=== PATIENT | female | born 1975 | race Caucasian/White ===

== ENCOUNTER 2017-07-11 07:05 | Inpatient (IN) | payer BC ==
--- NOTE | 2017-07-10 06:06 | PREOPHP ---
DATE OF ADMISSION: 07/11/2017 The patient is coming on , 07/11/2017, for a surgical procedure. HISTORY OF PRESENT ILLNESS: This is a 41-year-old female 3, para 3, with history of a lost IUD string since 2008. This patient has been bleeding heavily off and on with clots, with an ultras ound that shows a single 8 cm fundal fibroid. This patient was to have another child and would like to preserve her fertility for which a myomectomy has been offered instead of a hysterectomy, with t he possibility of complications during the procedure and the need to have the hysterectomy consent i n case of unmanageable intraoperative bleeding. The patient understands that and she is agreeing on this procedure. She is complaining of bleeding every day for months. She has been anemic. She hassan s visited several doctors that try to take her IUD also that has been embedded and lost inside her u terus. The patient was offered a myomectomy and the removal of lost IUD, with the possibility of a hysterectomy in case of inability to control her bleeding. PAST MEDICAL HISTORY: Unremarkable. She is healthy. ALLERGIES: SHE HAS NO ALLERGIES. MEDICATIONS: She is on no medication. FAMILY HISTORY: Noncontributory. REVIEW OF SYSTEMS: Negative for cardiovascular disease, lung disease, GI disease, endocrine disease , neurological or orthopedic disease. SOCIAL HISTORY: No history of drugs or alcohol. FAMILY HISTORY: Unremarkable. She is on no medication. PHYSICAL EXAMINATION: VITAL SIGNS: The blood pressure is 130/80, pulse is 80, temperature 98.6. She weighs 162. She is 5 feet 6 inches. HEAD AND NECK: Normal. BREASTS: Soft, nontender, no masses. CHEST: Clear. HEART: Normal sinus rhythm. LUNGS: Clear. ABDOMEN: With a uterus that is palpable about a 14-week size of a about the symphysis. GENITALIA: Negative. PELVIC: Cervix is healthy. Uterus with bleeding, retroverted flex about 14 weeks size. Adnexa are negative. EXTREMITIES: Normal. DIAGNOSES: With intractable menometrorrhagia, intractable pelvic pain, large uterine fibroid, lost IUD, anemia, the patient has been advised for a myomectomy and removal of IUD, and possible DAIANA. Dariel dorman has been advised of the possible risks and possible complications of the procedure with her altern atives and options. Written information was provided. She had no more questions and agreed to go a head with the procedure with full understanding and no more questions. Dictated By: THU MCGOVERN/NTS Conf#: [id number] DID#: [id number]
[2017-07-11] VITALS (14 sets, daily range): BP systolic 119–134; BP diastolic 63–69; PULSE 70–84; RESP 12–20; Ht 170.2 cm; Wt 71.0 kg
[~2017-07-11] VITALS: Ht 170.2 cm; Wt 71.0 kg
[2017-07-11] MEDS ORDERED: CEFAZOLIN 2 GM/50 ML (PMX) 50 ML IVPB ONE (08:00)
[2017-07-11] MEDS ORDERED: PROPOFOL 20 ML ONE (09:27)
[2017-07-11] MEDS ORDERED: ROCURONIUM 50 MG INJ ONE (09:27)
[2017-07-11] MEDS ORDERED: LIDOCAINE 2% (SDV) 5 ML INJ ONE (09:27)
[2017-07-11] MEDS ORDERED: SUCCINYLCHOLINE CHLORIDE 100 MG/5 ML SYG IV ONE (09:27)
[2017-07-11] MEDS ORDERED: GLYCOPYRROLATE 0.4 MG INJ ONE ×2 (09:27→11:28)
[2017-07-11] MEDS ORDERED: NEOSTIGMINE 3 MG/3 ML SYRINGE ONE ×2 (09:27→11:28)
[2017-07-11] MEDS ORDERED: MEPERIDINE 100 MG INJ ONE (09:28)
--- NOTE | 2017-07-11 09:36 | HPN ---
Date/Time of Note Date/Time of Note DATE: 07/11/17 TIME: 09:36 Interval H&P Admission Note Pt. seen H&P reviewed: No system changes THU ARNOLD MD Jul 11, 2017 09:36
[2017-07-11] MEDS ORDERED: CEFAZOLIN 1 GM INJ ONE (10:11)
[2017-07-11] MEDS ORDERED: ONDANSETRON 4 MG INJ ONE (10:12)
[2017-07-11] MEDS ORDERED: METOCLOPRAMIDE 10 MG INJ ONE (10:12)
[2017-07-11] MEDS ORDERED: VASOPRESSIN 20 UNITS INJ ONE (10:31)
[2017-07-11] MEDS ORDERED: METOCLOPRAMIDE 10 MG INJ IV PRN (11:00)
[2017-07-11] MEDS ORDERED: OXYCODONE/ACETAMINOPHEN (5/325) TAB PO PRN ×2 (11:00)
[2017-07-11] MEDS ORDERED: FENTAnyl 50 MCG/ML VIAL IV PRN ×2 (11:00)
[2017-07-11] MEDS ORDERED: MIDAZOLAM 1 MG/ML 2 ML INJ IV PRN (11:00)
[2017-07-11] MEDS ORDERED: LABETALOL HCL 20MG INJ IV PRN (11:00)
[2017-07-11] MEDS ORDERED: HYDROmorphONE (0.2 MG/ML) 10ML SYG IV PRN ×2 (11:00)
[2017-07-11] MEDS ORDERED: ONDANSETRON 4 MG INJ IV PRN ×2 (11:00→21:30)
[2017-07-11] MEDS ORDERED: EPHEDrine SULFATE 50 MG/5 ML SYG IV PRN (11:00)
[2017-07-11] MEDS ORDERED: hydrALAzine 20 MG INJ IV PRN (11:00)
[2017-07-11] MEDS ORDERED: DIPHENHYDRAMINE 50 MG INJ IV PRN (11:00)
[2017-07-11] MEDS ORDERED: MEPERIDINE 25 MG INJ IV PRN (11:00)
--- NOTE | 2017-07-11 11:58 | SIPON ---
Date/Time of Note Date/Time of Note DATE: 07/11/17 TIME: 11:56 Operative Report Preoperative Diagnosis Intractable pelvic pain and menometrorrhagia Anemia Large uterine fibroid 8+ cm Postoperative Diagnosis Same Operation/Procedure Performed Abdominal myomectomy Surgeon see signature line infertility medical assistant Dr. Al Anesthesia: general Estimated blood loss: 10 - 50 ml's Transfusion Required none Specimen Uterine fibroid Grafts/Implants none Complications none THU ARNOLD MD Jul 11, 2017 11:58
[2017-07-11] MEDS ORDERED: ZOLPIDEM 5 MG TAB PO PRN (12:00)
[2017-07-11] MEDS ORDERED: KETOROLAC 30 MG INJ IV PRN (12:00)
[2017-07-11] MEDS ORDERED: BISACODYL (EC) 5 MG TAB PO PRN (12:00)
[2017-07-11] MEDS ORDERED: HYDROmorphONE 1 MG/ML SYG IV PRN (12:00)
[2017-07-11] MEDS ORDERED: DIPHENHYDRAMINE 50 MG CAP PO PRN (12:00)
--- NOTE | 2017-07-11 12:07 | OPR ---
DATE OF OPERATION: 07/11/2017 PROCEDURE: Abdominal myomectomy. PREOPERATIVE DIAGNOSES: 1. Large fibroid uterus. 2. Intractable pelvic pain and menometrorrhagia. POSTOPERATIVE DIAGNOSES: 1. Large fibroid uterus. 2. Intractable pelvic pain and menometrorrhagia SURGEON: Thu Silva MD TRUCK RENTAL CLERK: . ANESTHESIOLOGIST: Dr. Rosas. ANESTHESIA: General anesthesia. DESCRIPTION OF PROCEDURE: The patient was given general anesthesia, placed in the supine position. The abdomen was prepped and draped and a Jones catheter was placed in the bladder. A transverse in cision going 2 cm up the pubic bone was made of about 8 cm in diameter. The abdominal cavity was re ached. The pelvic cavity was reached and a large fundal fibroid was observed. Both tubes and ovari es were normal. The Pitressin 20 units were diluted in 20 mL of normal saline and this was injected underneath the area of the fibroid for vasoconstriction. A midline incision was made from the fund us to the bottom vertically to be able to remove this fibroid. A towel clip was used and the fibroi d was removed with Metzenbaum and with digital dissection. After the fibroid was removed the cavity was observed and the uterus was completely visualized and the endometrial area was observed to be o pen. The fibroid involved the anterior wall of the uterus and fundus reaching all the way to the ar ea of the endometrium. There was no active bleeding. There were some pumpers that were cauterized with single stitches with 0 Monocryl and stitches with 0 Vicryl with good hemostasis. The cavity wa s closed using #0 catgut pop off sutures so the myometrium was closed thoroughly, approximating one side to the other side and the serosa of the uterus was closed with a 2-0 Vicryl continuous suture. Hemostasis was visualized under water, it was very stable and good. A piece of Interceed was place d on the incisional area and on top of the uterus to prevent adhesions. The cavity had been cleaned thoroughly and the procedure was finished after assessing the uterus and making sure there was no o ther fibroid which there was no other fibroid. The peritoneum was closed with a 2-0 Vicryl suture. The fascia was closed with 0 PDS looped suture. The subcutaneous tissue was closed with 2-0 Vicryl and 3-0 Monocryl subcuticular to the skin. Dermabond and Steri-Strips were applied. The patient t olerated the procedure well and left the OR awake and stable. Sponge counts and instrument counts w ere correct. Intravenous antibiotics were given for prophylaxis. Blood loss was approximately 20 m L and the urine was clear at the end of the procedure. Dictated By: THU MCGOVERN/FERMIN Conf#: [id number] DID#: [id number]
[2017-07-11] MEDS: FENTAnyl 50 MCG/ML VIAL IV PRN ×2 (12:20→12:26)
[2017-07-11] MEDS: LACTATED RINGER'S 1,000 ML IV SCH ×3 (12:44→23:37)
[2017-07-11] MEDS: HYDROmorphONE (0.2 MG/ML) 10ML SYG IV PRN ×3 (13:21→13:54)
[2017-07-11] MEDS: CEFAZOLIN 1 GM/50 ML (PMX) 50 ML IVPB SCH ×2 (13:54→22:04)
[2017-07-11] MEDS: METOCLOPRAMIDE 10 MG TAB PO SCH ×2 (18:27→23:37)
--- NOTE | 2017-07-11 18:32 | RADRPT ---
Vent Rate: 77 bpm RR Interval: 0 msec HI Interval: 188 msec QRS Duration: 90 msec QT Interval: 400 msec QTC Interval: 452 msec P-R-T [place]: 60 - 66 - 57 degrees Normal sinus rhythm Normal ECG Electronically Signed By: Mina García [id number]
[2017-07-11] MEDS: HYDROCODONE/APAP (5/325) TAB PO PRN (20:21)
[2017-07-11] MEDS: KETOROLAC 30 MG INJ IV SCH (21:30)
[2017-07-12 02:00] VITALS: BP 94/51; RESP 18
[2017-07-12] MEDS: KETOROLAC 30 MG INJ IV SCH ×4 (03:09→21:30)
[2017-07-12] MEDS: LACTATED RINGER'S 1,000 ML IV SCH ×2 (03:59→08:58)
[2017-07-12] MEDS: METOCLOPRAMIDE 10 MG TAB PO SCH ×4 (05:45→23:35)
[2017-07-12] MEDS: CEFAZOLIN 1 GM/50 ML (PMX) 50 ML IVPB SCH (05:46)
[2017-07-12 06:05] LABS: BASOPHILS % 0.2 % (0.0-2.0); EOSINOPHILS % 0.1 % (0.0-7.0); HEMOGLOBIN 10.5 g/dl (12.0-16.0); LYMPHOCYTES # 1.1 10^3/ul (0.8-2.9); LYMPHOCYTES % 7.7 % (15.0-51.0); MEAN CORPUSCULAR HEMOGLOBIN 29.2 pg (29.0-33.0); MEAN CORPUSCULAR HGB CONC 32.8 g/dl (32.0-37.0); MEAN CORPUSCULAR VOLUME 88.9 fl (82.0-101.0); MEAN PLATELET VOLUME 12.8 fl (7.4-10.4); MONOCYTE # 1.1 10^3/ul (0.3-0.9); MONOCYTES % 7.7 % (0.0-11.0); PLATELET COUNT 217 10^3/UL (140-415); RED CELL DISTRIBUTION WIDTH 11.8 % (11.5-14.5); WHITE BLOOD COUNT 14.3 10^3/ul (4.8-10.8)
[2017-07-12 06:44] LABS: CREATININE 0.63 mg/dl (0.44-1.00); POTASSIUM 3.9 mmol/L (3.5-5.1)
[2017-07-12 07:46] VITALS: BP 97/50; RESP 16
--- NOTE | 2017-07-12 12:46 | PN ---
Date/Time of Note Date/Time of Note DATE: 07/12/17 TIME: 12:45 Assessment/Plan Lines/Catheters IV Catheter Type (from [facility]): Peripheral IV Jones in Place (from [facility]): Yes Subjective 24 Hr Interval Summary day 1 postop afebrile. feels good. surgery explained to patient. Constitutional: BM, ambulates, flatus, improved, no complaints, urine output Feeding: advancing diet Detailed Summary Eyes: no complaints ENT: no complaints Respiratory: no complaints Cardiovascular: no complaints Gastrointestinal: no complaints Genitourinary: no complaints Musculoskeletal: no complaints Skin: no complaints Neurologic: no complaints Endocrine: no complaints Lymphatic: no complaints Psychological: nl mood/affect, no complaints Immunologic: no complaints Exam/Review of Systems Vital Signs Vitals Vital Signs Date Time Temp Pulse Resp B/P Pulse Ox O2 Delivery O2 Flow Rate FiO2 07/12/17 07:46 98.0 87 16 97/50 98 07/11/17 12:51 Room Air Intake and Output 07/11/17 07/11/17 07/12/17 15:00 23:00 07:00 Intake Total 50 ml 1300 ml Balance 50 ml 1300 ml Exam Constitutional: alert, oriented, well developed Psych: nl mood/affect, no complaints Head: atraumatic, normocephalic Eyes: EOMI, nl conjunctiva, nl lids, nl sclera ENMT: mucosa pink and moist, nl external ears & nose, nl lips & teeth, nl nasal mucosa & septum Neck: non-tender, supple Respiratory: clear to auscultation, normal air movement Cardiovascular: nl pulses, regular rate and rhythm Gastrointestinal: nl liver, spleen, non-tender, soft Musculoskeletal: nl extremities to inspection, nl gait and stance Extremities: normal pulses Neurological: FAMILY SERVICES SPECIALIST II-XII intact, nl mental status, nl speech, nl strength Skin: nl turgor, rash or lesions Lymph: nl lymph nodes Results Result Diagram: 07/12/17 0455 07/12/17 0455 THU ARNOLD MD Jul 12, 2017 12:46
[2017-07-12] MEDS ORDERED: BISACODYL (EC) 5 MG TAB PO ONE (13:00)
[2017-07-12 14:03] VITALS: BP 106/59; RESP 16
[2017-07-12] MEDS: HYDROCODONE/APAP (5/325) TAB PO PRN ×2 (14:38→23:04)
[2017-07-12 19:42] VITALS: BP 132/64; RESP 20
[2017-07-13 02:00] VITALS: BP 130/69; RESP 18
[2017-07-13] MEDS: KETOROLAC 30 MG INJ IV SCH ×4 (02:38→21:02)
[2017-07-13] MEDS: METOCLOPRAMIDE 10 MG TAB PO SCH ×3 (05:33→18:42)
[2017-07-13] MEDS: HYDROCODONE/APAP (5/325) TAB PO PRN ×2 (05:34→23:10)
[2017-07-13 08:03] VITALS: BP 116/57; RESP 16
--- NOTE | 2017-07-13 12:03 | PN ---
Date/Time of Note Date/Time of Note DATE: 07/13/17 TIME: 11:54 Assessment/Plan Lines/Catheters IV Catheter Type (from Nrs): Peripheral IV Jones in Place (from Nrs): Yes Subjective 24 Hr Interval Summary July 12, 2017 Post abdominal myomectomy day 2 Hospital visit This is a post op visit of this 41 years old lady who had myomectomy 2 days ago (This is a 41-year-old female 3, para 3, with history of a lost IUD string since 2008. This patient has been bleeding heavily off and on with clots , with an ultrasound that shows a single 8 cm fundal fibroid.) Today she is afebrile chest is clear No calf tenderness Abdomen is soft Bowel sounds are present No CVA tenderness Her hemoglobin is 10.5 hematocrit 32 and WBC is 14.3 Her abdominal incision is clean Additional Comments Laboratory Tests Test 07/12/17 04:55 07/12/17 05:31 White Blood Count 14.310^3/ul Red Blood Count 3.6010^6/ul Hemoglobin 10.5g/dl Hematocrit 32.0% Mean Corpuscular Volume 88.9fl Mean Corpuscular Hemoglobin 29.2pg Mean Corpuscular Hemoglobin Concent 32.8g/dl Red Cell Distribution Width 11.8% Platelet Count 13312^3/UL Mean Platelet Volume 12.8fl Neutrophils % 84.0% Lymphocytes % 7.7% Monocytes % 7.7% Eosinophils % 0.1% Basophils % 0.2% Nucleated Red Blood Cells % 0.0/100WBC Neutrophils # 12.010^3/ul Lymphocytes # 1.110^3/ul Monocytes # 1.110^3/ul Eosinophils # 0.010^3/ul Basophils # 0.010^3/ul Nucleated Red Blood Cells # 0.010^3/ul Sodium Level 138mmol/L Potassium Level 3.9mmol/L Chloride Level 105mmol/L Carbon Dioxide Level 28mmol/L Anion Gap 9 Blood Urea Nitrogen 6mg/dl Creatinine 0.63mg/dl Lab Scanned Report [id number] Current Medications Medications (Trade) Dose Ordered Sig/Tristen Route PRN Reason Start Time Stop Time Status Last Admin Dose Admin Cefazolin Sodium/ Dextrose (Ancef 2 Gm/50 ml (Pmx)) 50 ml @ 100 mls/hr PRE-OP ONCE IVPB 07/11/17 08:00 07/11/17 08:29 DC Lidocaine (Xylocaine 2% (Sdv)) 100 mg STK-MED ONCE .ROUTE 07/11/17 09:27 07/11/17 09:28 DC Rocuronium [place] 50 mg 50 mg STK-MED ONCE .ROUTE 07/11/17 09:27 07/11/17 09:28 DC Propofol (Diprivan) 20 ml @ ud STK-MED ONCE .ROUTE 07/11/17 09:27 07/11/17 09:28 DC Glycopyrrolate (Robinul) 0.4 mg STK-MED ONCE .ROUTE 07/11/17 09:27 07/11/17 09:28 DC Succinylcholine Chloride (Anectine Syringe) 100 mg STK-MED ONCE IV 07/11/17 09:27 07/11/17 09:28 DC Neostigmine Methylsulfate (Neostigmine) 3 mg STK-MED ONCE .ROUTE 07/11/17 09:27 07/11/17 09:28 DC Meperidine HCl (Demerol) 100 mg STK-MED ONCE .ROUTE 07/11/17 09:28 07/11/17 09:29 DC Cefazolin Sodium (Ancef) 1 gm STK-MED ONCE .ROUTE 07/11/17 10:11 07/11/17 10:12 DC Ondansetron HCl (Zofran Inj) 4 mg STK-MED ONCE .ROUTE 07/11/17 10:12 07/11/17 10:13 DC Metoclopramide HCl (Reglan) 10 mg STK-MED ONCE .ROUTE 07/11/17 10:12 07/11/17 10:13 DC Hydromorphone HCl (Dilaudid (Rec)) 0.2 mg PACU ORDER PRN IV MILD PAIN LEVEL 1-3 07/11/17 11:00 07/11/17 16:00 DC Hydromorphone HCl (Dilaudid (Rec)) 0.4 mg PACU ORDER PRN IV MODERATE PAIN LEVEL 4-6 07/11/17 11:00 07/11/17 16:00 DC 07/11/17 13:54 Hydromorphone HCl (Dilaudid (Rec)) 0.6 mg PACU ORDER PRN IV SEVERE PAIN LEVEL 7-10 07/11/17 11:00 07/11/17 16:00 DC Fentanyl (Sublimaze) 25 mcg PACU ORDER PRN IV MILD PAIN LEVEL 1-3 07/11/17 11:00 07/11/17 16:00 DC 07/11/17 12:26 Fentanyl (Sublimaze) 50 mcg PACU ODER PRN IV MODERATE PAIN LEVEL 4-6 07/11/17 11:00 07/11/17 16:00 DC 07/11/17 12:45 Fentanyl (Sublimaze) 75 mcg PACU ORDER PRN IV SEVERE PAIN LEVEL 7-10 07/11/17 11:00 07/11/17 16:00 DC Oxycodone/ Acetaminophen (Percocet (5/ 325)) 1 tab PACU ORDER PRN PO PAIN LEVEL 1-5 07/11/17 11:00 07/11/17 16:00 DC Oxycodone/ Acetaminophen (Percocet (5/ 325)) 2 tab PACU ORDER PRN PO PAIN LEVEL 6-10 07/11/17 11:00 07/11/17 16:00 DC Ondansetron HCl (Zofran Inj) 4 mg PACU ORDER PRN IV NAUSEA AND/OR VOMITING 07/11/17 11:00 07/11/17 16:00 DC 07/11/17 12:21 Metoclopramide HCl (Reglan) 10 mg PACU ORDER PRN IV NAUSEA AND/OR VOMITING 07/11/17 11:00 07/11/17 16:00 DC 07/11/17 12:25 Labetalol HCl (Labetalol) 5 mg PACU ORDER PRN IV HIGH BLOOD PRESSURE 07/11/17 11:00 07/11/17 16:00 DC Hydralazine HCl (Apresoline) 5 mg PACU ORDER PRN IV HIGH BLOOD PRESSURE 07/11/17 11:00 07/11/17 16:00 DC Ephedrine Sulfate 5 mg PACU ORDER PRN IV MAP LESS THAN 60 07/11/17 11:00 07/11/17 16:00 DC Meperidine HCl (Demerol) 25 mg PACU ORDER PRN IV POST-OP RIGORS 07/11/17 11:00 07/11/17 16:00 DC 07/11/17 12:20 Diphenhydramine HCl (Benadryl) 25 mg PACU ORDER PRN IV PRURITUS 07/11/17 11:00 07/11/17 16:00 DC 07/11/17 13:29 Midazolam HCl (Versed) 0.5 mg PACU ORDER PRN IV ANXIETY 07/11/17 11:00 07/11/17 16:00 DC Vasopressin (Pitressin) 20 unit STK-MED ONCE .ROUTE 07/11/17 10:31 07/11/17 10:32 DC 07/11/17 10:41 Neostigmine Methylsulfate (Neostigmine) 3 mg STK-MED ONCE .ROUTE 07/11/17 11:28 07/11/17 11:29 DC Glycopyrrolate 0.4 mg 0.4 mg STK-MED ONCE .ROUTE 07/11/17 11:28 07/11/17 11:29 DC Lactated Ringer's 1,000 ml @ 125 mls/hr Q8H IV 07/11/17 11:59 07/12/17 12:42 DC 07/12/17 08:58 Cefazolin Sodium (Ancef 1 Gm/50 ml (Pmx)) 50 ml @ 100 mls/hr Q8 IVPB 07/11/17 14:00 07/12/17 12:42 DC 07/12/17 05:46 Zolpidem Tartrate (Ambien) 10 mg HS PRN PO INSOMNIA 07/11/17 12:00 Metoclopramide HCl (Reglan) 10 mg Q6 PO 07/11/17 18:00 07/13/17 05:33 Simethicone (Mylicon) 160 mg Q6 PO 07/11/17 18:00 07/13/17 05:33 Bisacodyl (Dulcolax) 10 mg DAILY PRN PO CONSTIPATION 07/11/17 12:00 Hydromorphone HCl (Dilaudid) 1 mg Q4H PRN IV PAIN 07/11/17 12:00 Acetaminophen/ Hydrocodone Bitart ([place] (5/325)) 1 tab Q6H PRN PO PAIN LEVEL 4-6 07/11/17 12:00 07/12/17 14:38 Acetaminophen/ Hydrocodone Bitart ([place] (5/325)) 2 tab Q6H PRN PO PAIN LEVEL 7-10 07/11/17 12:00 07/13/17 05:34 Ketorolac Tromethamine (Toradol) 30 mg Q6H PRN IV PAIN 07/11/17 12:00 07/11/17 21:12 DC Diphenhydramine HCl (Benadryl) 50 mg Q6H PRN PO ITCHING 07/11/17 12:00 Ondansetron HCl (Zofran Inj) 4 mg Q4H PRN IV NAUSEA AND/OR VOMITING 07/11/17 21:30 Ketorolac Tromethamine (Toradol) 30 mg Q6H IV 07/11/17 21:30 07/14/17 21:29 07/13/17 10:48 Bisacodyl (Dulcolax) 10 mg ONCE ONCE PO 07/12/17 13:00 07/12/17 13:01 DC 07/12/17 13:28 We will advance her diet to regular Exam/Review of Systems Vital Signs Vitals Vital Signs Date Time Temp Pulse Resp B/P Pulse Ox O2 Delivery O2 Flow Rate FiO2 07/13/17 08:03 98.5 85 16 116/57 96 07/11/17 12:51 Room Air Intake and Output 07/12/17 07/12/17 07/13/17 15:00 23:00 07:00 Intake Total 1240 ml Output Total 2225 ml Balance -985 ml Results Result Diagram: 07/12/17 0455 07/12/17 0455 TEREZA NEAL MD Jul 13, 2017 12:03
[2017-07-13 15:34] VITALS: BP 129/71; RESP 16
[2017-07-13 20:30] VITALS: BP 118/68; PULSE 91; RESP 18
[2017-07-14] MEDS: KETOROLAC 30 MG INJ IV SCH ×2 (03:30→11:02)
[2017-07-14 03:51] VITALS: BP 116/66; PULSE 75; RESP 16
[2017-07-14] MEDS: METOCLOPRAMIDE 10 MG TAB PO SCH ×2 (06:00)
[2017-07-14 08:05] VITALS: BP 121/69; RESP 16
--- NOTE | 2017-07-14 14:08 | PD.PPDC ---
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
--- NOTE | 2017-07-15 01:59 | DS ---
DATE OF ADMISSION: 07/11/2017 DATE OF DISCHARGE: 07/14/2017 HISTORY: Large fibroid uterus with intractable menometrorrhagia and pelvic pain, and anemia and a l ost IUD. FINAL DIAGNOSES: 1. Large uterine fibroid. 2. Intractable menometrorrhagia. 3. Pelvic pain. 4. Anemia. HISTORY OF PRESENT ILLNESS: This is a 41-year-old female, 3, para 3 with a history of a los t IUD, which she found recently in the last period. The patient had an ultrasound that revealed malia t she had an 8 cm fundal fibroid and she was willing to have a myomectomy and not a hysterectomy, du e to the wishes that she had for another child. The patient was advised to have a myomectomy, anabel AHMADI in case of an emergency. She underwent a myomectomy without complications. Her laboratory testing at the time of discharge was normal. The pathology report revealed that there was leiomyoma with no malignancy or atypia. The last hemoglobin and hematocrit was 10.5 and hematocrit of . The patient does not feel anemic, she feels fine. She has been tolerating the pain with p.o. medi cations. She has been voiding well and having bowel movements. The incision is clean, dry and she has been afebrile and ambulatory and tolerating diet. The patient has been advised to see me in the office in a week, or earlier if she has any problems. She was given further advice of what to do a nd not to do at home, and to see me in the office in a week or earlier if she has any problems. She was discharged stable and in good condition, and with further instructions. Dictated By: THU MCGOVERN/FERMIN Conf#: [id number] DID#: [id number]
== END 2017-07-14 15:13 | disposition home or self-care (01) | DRG 743 ==
LOC: REC 07:05 → MS2 17:15
PROVIDERS: ADMIT Obstetrics & Gynecology; ATTEND Obstetrics & Gynecology
PROC: 0UB90ZZ Excision of Uterus, Open Approach (ICD-10-PCS; principal; 2017-07-11 09:00)
DX: D25.9 Leiomyoma of uterus, unspecified (principal); D64.9 Anemia, unspecified; N92.1 Excessive and frequent menstruation with irregular cycle
CPT/HCPCS: 80051; 82565; 84520; 85025; 86850; 86900; 86901; 86920; 87086; 88305; 93005; J0690; J1170; J1200; J1885; J2175; J2405; J2710; J2765; J3010; J7120